=== PATIENT | female | born 1965 | race Two or more races ===

== ENCOUNTER 2017-07-19 16:47 | Inpatient (IN) | payer MEDICAID, OTHER ==
[~2017-07-19] VITALS: Ht 152.4 cm; Wt 47.3 kg
[2017-07-19] MEDS ORDERED: MORPHINE SULFATE 4 MG/ML, 1ML ONE (17:20)
[2017-07-19] MEDS: MORPHINE SULFATE 4 MG/ML, 1ML IVPush PRN (17:24)
[2017-07-19] MEDS ORDERED: SODIUM CHLORIDE FLUSH 10ML SYR IVF ONE (17:30)
[2017-07-19] MEDS ORDERED: PLEASE ENTER ALLERGIES MC SCH ×2 (17:30)
[2017-07-19 17:56] LABS: HEMATOCRIT 45.2 % (34.6-47.8); HEMOGLOBIN 15.4 g/dL (11.7-16.4); WHITE BLOOD COUNT 12.8 x10^3/uL (3.4-10)
[2017-07-19 17:58] LABS: BLOOD UREA NITROGEN 15 mg/dL (7-18)
[2017-07-19 18:19] LABS: DIFF TOTAL CELLS COUNTED 100 CELL DIFF
[2017-07-19 18:22] LABS: GIANT PLATELETS 1+
[2017-07-19 18:23] LABS: VERIFY COUNTS? YES
[2017-07-19] MEDS ORDERED: SODIUM CHLORIDE 0.9% 1,000ML IVBOLUS ONE (18:30)
[2017-07-19] MEDS ORDERED: HYDROmorphone 1 MG/ML, 1ML ONE (19:23)
[2017-07-19] MEDS ORDERED: HYDROmorphone 1 MG/ML, 1ML IV ONE (19:30)
[2017-07-19] MEDS ORDERED: DIAZEPAM 5 MG/ML, 10ML VIAL IV ONE (19:30)
[2017-07-19] MEDS ORDERED: DEXTROSE 4 GM TAB.CHEW PO PRN (21:00)
[2017-07-19] MEDS ORDERED: BISACODYL 10 MG SUPP PR PRN (21:00)
[2017-07-19] MEDS ORDERED: DEXTROSE 50%, 50ML SYRINGE IVPush PRN (21:00)
[2017-07-19] MEDS ORDERED: GLUCAGON 1 MG IM PRN (21:00)
[2017-07-19] MEDS ORDERED: ACETAMINOPHEN 325 MG TABLET PO PRN (21:00)
[2017-07-19] MEDS ORDERED: CLON2TAB16 PO (22:04)
[2017-07-19] MEDS: HEPARIN 5,000 UNITS/ML, 1ML SQ SCH (22:26)
[2017-07-19] MEDS: METHOCARBAMOL 500 MG TABLET PO PRN (22:27)
[2017-07-19] MEDS: INSULIN ASPART 100 UNITS/ML, PEN SQ-INSULIN SCH (22:27)
[2017-07-19] MEDS: SODIUM CHLORIDE FLUSH 10ML SYR IVF SCH (22:29)
[2017-07-19] MEDS: SODIUM CHLORIDE 0.9% 1,000 ML IV SCH (22:29)
[2017-07-19] MEDS: morphine SULFATE 10 MG/ML, 1ML IVPush PRN (22:57)
[2017-07-20] MEDS: ONDANSETRON 2MG/ML, 2ML IVPush PRN ×2 (03:00→11:50)
[2017-07-20] MEDS: morphine SULFATE 10 MG/ML, 1ML IVPush PRN ×3 (03:17→09:08)
[2017-07-20 04:16] VITALS: BP 105/69
[2017-07-20 05:31] LABS: HEMATOCRIT 41.1 % (34.6-47.8); HEMOGLOBIN 13.9 g/dL (11.7-16.4); WHITE BLOOD COUNT 11.5 x10^3/uL (3.4-10)
[2017-07-20 05:47] LABS: ASPARTATE AMINO TRANSFERASE 108 U/L (15-37); BLOOD UREA NITROGEN 14 mg/dL (7-18)
[2017-07-20] MEDS: HEPARIN 5,000 UNITS/ML, 1ML SQ SCH ×2 (05:52→16:50)
[2017-07-20] MEDS: INSULIN ASPART 100 UNITS/ML, PEN SQ-INSULIN SCH ×4 (07:00→20:56)
[2017-07-20 07:07] VITALS: BP 106/69
[2017-07-20] MEDS: SENNA/DOCUSATE TABLET PO SCH (09:00)
[2017-07-20] MEDS: MORPHINE SULFATE 4 MG/ML, 1ML IVPush PRN (09:07)
[2017-07-20] MEDS: SODIUM CHLORIDE 0.9% 1,000 ML IV SCH ×2 (09:08→20:55)
[2017-07-20] MEDS: SODIUM CHLORIDE FLUSH 10ML SYR IVF SCH ×2 (09:08→20:56)
[2017-07-20] MEDS: METHOCARBAMOL 500 MG TABLET PO PRN (09:09)
[2017-07-20] MEDS ORDERED: LORazepam 2 MG/ML, 1ML ONE (10:13)
[2017-07-20] MEDS ORDERED: KETOROLAC 30 MG/1 ML ONE (10:13)
[2017-07-20] MEDS: HYDROmorphone 2 MG/ML, 1ML IVPush PRN ×3 (10:19→21:10)
[2017-07-20] MEDS: KETOROLAC 30 MG/1 ML IVPush SCH ×3 (10:20→22:44)
[2017-07-20] MEDS ORDERED: LORazepam 2 MG/ML, 1ML IVPush ONE (10:30)
[2017-07-20 13:56] VITALS: BP 99/64
[2017-07-20 20:03] VITALS: BP 116/77
[2017-07-21 02:00] VITALS: BP 98/59
[2017-07-21] MEDS: KETOROLAC 30 MG/1 ML IVPush SCH ×4 (05:06→22:18)
[2017-07-21 06:37] LABS: HEMATOCRIT 39.4 % (34.6-47.8); HEMOGLOBIN 13.1 g/dL (11.7-16.4); WHITE BLOOD COUNT 8.6 x10^3/uL (3.4-10)
[2017-07-21] MEDS ORDERED: MAGNESIUM SULFATE PMX 2GM/50ML 50 ML IV ONE (07:00)
[2017-07-21 07:43] VITALS: BP 97/58
[2017-07-21] MEDS: SODIUM CHLORIDE 0.9% 1,000 ML IV SCH (07:45)
[2017-07-21] MEDS: SENNA/DOCUSATE TABLET PO SCH (07:46)
[2017-07-21] MEDS: HEPARIN 5,000 UNITS/ML, 1ML SQ SCH ×3 (07:47→16:31)
[2017-07-21] MEDS: SODIUM CHLORIDE FLUSH 10ML SYR IVF SCH ×2 (07:47→20:36)
[2017-07-21] MEDS: INSULIN ASPART 100 UNITS/ML, PEN SQ-INSULIN SCH ×4 (07:49→20:36)
[2017-07-21] MEDS: HYDROmorphone 2 MG/ML, 1ML IVPush PRN (08:49)
[2017-07-21] MEDS ORDERED: INSULIN DETEMIR 100 UNITS/ML, PEN SQ-INSULIN SCH (13:00)
[2017-07-21 13:25] VITALS: BP 92/57
[2017-07-21] MEDS ORDERED: GADOBUTROL 7.5 MMOL/7.5 ML PFS ONE (13:55)
[2017-07-21] MEDS ORDERED: HYDROmorphone 2 MG/ML, 1ML IVPush PRN (14:30)
[2017-07-21] MEDS: METHOCARBAMOL 500 MG TABLET PO PRN (15:08)
[2017-07-21] MEDS: morphine SULFATE 10 MG/ML, 1ML IVPush PRN (17:44)
[2017-07-21 19:33] VITALS: BP 98/63
[2017-07-21] MEDS ORDERED: DEXTROSE 4 GM TAB.CHEW PO PRN (22:00)
[2017-07-21] MEDS ORDERED: BISACODYL 10 MG SUPP PR PRN (22:00)
[2017-07-22] MEDS: HEPARIN 5,000 UNITS/ML, 1ML SQ SCH ×3 (00:16→16:35)
[2017-07-22] MEDS: morphine SULFATE 10 MG/ML, 1ML IVPush PRN ×3 (00:24→06:28)
[2017-07-22 01:08] VITALS: BP 92/56
[2017-07-22] MEDS: KETOROLAC 30 MG/1 ML IVPush SCH ×4 (04:48→22:19)
[2017-07-22 05:44] LABS: ASPARTATE AMINO TRANSFERASE 34 U/L (15-37); BLOOD UREA NITROGEN 9 mg/dL (7-18)
[2017-07-22] MEDS: METHOCARBAMOL 500 MG TABLET PO PRN (05:49)
[2017-07-22] MEDS ORDERED: HYDROmorphone 2MG TABLET PO PRN (07:30)
[2017-07-22 07:36] VITALS: BP 132/88
[2017-07-22] MEDS: INSULIN ASPART 100 UNITS/ML, PEN SQ-INSULIN SCH ×4 (08:13→20:46)
[2017-07-22] MEDS: GABAPENTIN 100 MG CAPSULE PO SCH ×3 (08:53→20:46)
[2017-07-22] MEDS ORDERED: BACLOFEN 10 MG TABLET PO SCH (09:00)
[2017-07-22] MEDS ORDERED: INSULIN NPH HUMAN 100 UNIT/ML, 3ML VIAL SQ-INSULIN SCH (09:00)
[2017-07-22] MEDS: SENNA/DOCUSATE TABLET PO SCH (09:51)
[2017-07-22] MEDS: SODIUM CHLORIDE FLUSH 10ML SYR IVF SCH ×2 (09:51→20:47)
[2017-07-22] MEDS ORDERED: MAGNESIUM SULFATE PMX 2GM/50ML 50 ML IV ONE (13:30)
[2017-07-22] MEDS: SODIUM CHLORIDE 0.9% 1,000 ML IV SCH (14:06)
[2017-07-22 14:09] VITALS: BP 94/59
[2017-07-22 20:10] VITALS: BP 99/62
[2017-07-22] MEDS: BACLOFEN 10 MG TABLET PO PRN (20:46)
[2017-07-23] MEDS: HEPARIN 5,000 UNITS/ML, 1ML SQ SCH ×4 (00:29→23:09)
[2017-07-23] MEDS: SODIUM CHLORIDE 0.9% 1,000 ML IV SCH ×3 (00:29→21:09)
[2017-07-23 01:28] VITALS: BP 100/69
[2017-07-23] MEDS: KETOROLAC 30 MG/1 ML IVPush SCH ×4 (04:39→23:09)
[2017-07-23 05:26] LABS: BLOOD UREA NITROGEN 11 mg/dL (7-18)
[2017-07-23] MEDS: GABAPENTIN 100 MG CAPSULE PO SCH ×4 (06:11→21:09)
[2017-07-23] MEDS ORDERED: POTASSIUM CHLORIDE 20 MEQ TAB.ER.PRT PO ONE (07:00)
[2017-07-23] MEDS: INSULIN ASPART 100 UNITS/ML, PEN SQ-INSULIN SCH ×4 (07:45→21:11)
[2017-07-23] MEDS: SODIUM CHLORIDE FLUSH 10ML SYR IVF SCH ×2 (07:46→21:09)
[2017-07-23] MEDS: SENNA/DOCUSATE TABLET PO SCH (07:46)
[2017-07-23] MEDS: INSULIN NPH HUMAN 100 UNIT/ML, 3ML VIAL SQ-INSULIN SCH (07:46)
[2017-07-23 07:53] VITALS: BP 159/77
[2017-07-23] MEDS ORDERED: INSULIN NPH HUMAN 100 UNIT/ML, 3ML VIAL SQ-INSULIN SCH (09:00)
[2017-07-23 14:08] VITALS: BP 109/74
[2017-07-23] MEDS: BACLOFEN 10 MG TABLET PO PRN (15:14)
[2017-07-23] MEDS: POLYETHYLENE GLYCOL 17 GM PACKET PO PRN (15:14)
[2017-07-23] MEDS: ACETAMINOPHEN 325 MG TABLET PO PRN (15:14)
[2017-07-23 19:15] VITALS: BP 100/57
[2017-07-24 01:08] VITALS: BP 93/62
[2017-07-24] MEDS: KETOROLAC 30 MG/1 ML IVPush SCH (05:01)
[2017-07-24] MEDS: GABAPENTIN 100 MG CAPSULE PO SCH ×3 (05:01→22:28)
[2017-07-24 06:54] LABS: BLOOD UREA NITROGEN 9 mg/dL (7-18)
[2017-07-24] MEDS: SENNA/DOCUSATE TABLET PO SCH (08:08)
[2017-07-24 08:11] VITALS: BP 93/59
[2017-07-24] MEDS: HEPARIN 5,000 UNITS/ML, 1ML SQ SCH ×2 (08:11→16:34)
[2017-07-24] MEDS: INSULIN NPH HUMAN 100 UNIT/ML, 3ML VIAL SQ-INSULIN SCH (08:12)
[2017-07-24] MEDS: INSULIN ASPART 100 UNITS/ML, PEN SQ-INSULIN SCH ×4 (08:13→22:28)
[2017-07-24] MEDS: SODIUM CHLORIDE FLUSH 10ML SYR IVF SCH ×2 (08:18→22:28)
[2017-07-24] MEDS: morphine SULFATE 10 MG/ML, 1ML IVPush PRN ×3 (08:18→22:28)
[2017-07-24] MEDS: SODIUM CHLORIDE 0.9% 1,000 ML IV SCH (08:18)
[2017-07-24 14:12] VITALS: BP 84/64
[2017-07-24 19:25] VITALS: BP 102/69
[2017-07-25] MEDS: HEPARIN 5,000 UNITS/ML, 1ML SQ SCH ×3 (01:35→16:21)
[2017-07-25] MEDS: ACETAMINOPHEN 325 MG TABLET PO PRN (01:39)
[2017-07-25 02:20] VITALS: BP 100/65
[2017-07-25 05:59] LABS: BLOOD UREA NITROGEN 8 mg/dL (7-18)
[2017-07-25] MEDS: INSULIN ASPART 100 UNITS/ML, PEN SQ-INSULIN SCH ×4 (07:00→21:03)
[2017-07-25 07:35] VITALS: BP 101/64
[2017-07-25] MEDS: SODIUM CHLORIDE FLUSH 10ML SYR IVF SCH ×2 (08:49→21:08)
[2017-07-25] MEDS: GABAPENTIN 100 MG CAPSULE PO SCH ×2 (08:49→16:23)
[2017-07-25] MEDS: SENNA/DOCUSATE TABLET PO SCH (08:50)
[2017-07-25] MEDS: INSULIN NPH HUMAN 100 UNIT/ML, 3ML VIAL SQ-INSULIN SCH (08:50)
[2017-07-25 13:35] VITALS: BP 106/73
[2017-07-25] MEDS: BACLOFEN 10 MG TABLET PO PRN (16:23)
[2017-07-25] MEDS: morphine SULFATE 10 MG/ML, 1ML IVPush PRN ×2 (16:50→21:02)
[2017-07-25 18:45] VITALS: BP 119/81
[2017-07-25] MEDS: GABAPENTIN 300 MG CAPSULE PO SCH (21:02)
[2017-07-26] MEDS: HEPARIN 5,000 UNITS/ML, 1ML SQ SCH ×3 (02:00→16:00)
[2017-07-26 02:30] VITALS: BP 102/66
[2017-07-26 05:35] LABS: BLOOD UREA NITROGEN 11 mg/dL (7-18)
[2017-07-26] MEDS: INSULIN ASPART 100 UNITS/ML, PEN SQ-INSULIN SCH ×4 (07:00→21:29)
[2017-07-26 07:05] VITALS: BP 100/64
[2017-07-26] MEDS: morphine SULFATE 10 MG/ML, 1ML IVPush PRN ×2 (07:58→15:29)
[2017-07-26] MEDS: SENNA/DOCUSATE TABLET PO SCH (07:59)
[2017-07-26] MEDS: GABAPENTIN 300 MG CAPSULE PO SCH ×3 (07:59→21:43)
[2017-07-26] MEDS: SODIUM CHLORIDE FLUSH 10ML SYR IVF SCH ×2 (07:59→21:50)
[2017-07-26] MEDS: INSULIN NPH HUMAN 100 UNIT/ML, 3ML VIAL SQ-INSULIN SCH (08:06)
[2017-07-26 13:55] VITALS: BP 100/66
[2017-07-26] MEDS ORDERED: LORazepam 2 MG/ML, 1ML ONE (15:35)
[2017-07-26] MEDS ORDERED: HYDROmorphone 2 MG/ML, 1ML ONE (15:45)
[2017-07-26] MEDS: HYDROmorphone 1 MG/ML, 1ML IV PRN ×3 (15:49→22:11)
[2017-07-26] MEDS ORDERED: LORazepam 2 MG/ML, 1ML IVPush ONE (16:00)
[2017-07-26] MEDS ORDERED: GADOBUTROL 7.5 MMOL/7.5 ML PFS ONE (16:38)
[2017-07-26 19:30] VITALS: BP 103/65
[2017-07-26] MEDS: ONDANSETRON 2MG/ML, 2ML IVPush PRN (21:28)
[2017-07-26] MEDS: BACLOFEN 10 MG TABLET PO PRN (21:43)
[2017-07-26 22:17] VITALS: BP 149/92
[2017-07-27] MEDS: HEPARIN 5,000 UNITS/ML, 1ML SQ SCH ×4 (00:42→23:22)
[2017-07-27 01:50] VITALS: BP 93/60
[2017-07-27] MEDS: HYDROmorphone 1 MG/ML, 1ML IV PRN ×5 (04:20→22:54)
[2017-07-27] MEDS: GABAPENTIN 300 MG CAPSULE PO SCH ×3 (07:42→20:25)
[2017-07-27] MEDS: SENNA/DOCUSATE TABLET PO SCH (07:42)
[2017-07-27] MEDS: BACLOFEN 10 MG TABLET PO PRN (07:42)
[2017-07-27] MEDS: INSULIN ASPART 100 UNITS/ML, PEN SQ-INSULIN SCH ×4 (07:43→20:25)
[2017-07-27] MEDS: INSULIN NPH HUMAN 100 UNIT/ML, 3ML VIAL SQ-INSULIN SCH (07:43)
[2017-07-27] MEDS: SODIUM CHLORIDE FLUSH 10ML SYR IVF SCH ×2 (07:43→20:25)
[2017-07-27] MEDS: HYDROcodone/APAP 5/325 TABLET PO PRN ×2 (07:54→16:11)
[2017-07-27] MEDS: morphine SULFATE 10 MG/ML, 1ML IVPush PRN (08:01)
[2017-07-27] MEDS ORDERED: LORazepam 2 MG/ML, 1ML IVPush ONE (08:20)
[2017-07-27 08:48] VITALS: BP 147/103
[2017-07-27 12:24] VITALS: BP 92/58
[2017-07-27] MEDS: ONDANSETRON 2MG/ML, 2ML IVPush PRN (18:01)
[2017-07-27] MEDS ORDERED: GADOBUTROL 7.5 MMOL/7.5 ML PFS ONE (18:26)
[2017-07-27 20:32] VITALS: BP 100/66
[2017-07-28 03:40] VITALS: BP 98/61
[2017-07-28] MEDS: HYDROmorphone 1 MG/ML, 1ML IV PRN ×3 (05:10→18:11)
[2017-07-28] MEDS: INSULIN ASPART 100 UNITS/ML, PEN SQ-INSULIN SCH ×4 (07:47→21:27)
[2017-07-28 07:54] VITALS: BP 95/59
[2017-07-28] MEDS: INSULIN NPH HUMAN 100 UNIT/ML, 3ML VIAL SQ-INSULIN SCH (09:08)
[2017-07-28] MEDS: GABAPENTIN 300 MG CAPSULE PO SCH ×3 (09:08→21:27)
[2017-07-28] MEDS: SENNA/DOCUSATE TABLET PO SCH (09:09)
[2017-07-28] MEDS: HEPARIN 5,000 UNITS/ML, 1ML SQ SCH ×2 (09:09→16:27)
[2017-07-28] MEDS: SODIUM CHLORIDE FLUSH 10ML SYR IVF SCH ×2 (09:09→21:28)
[2017-07-28 14:39] VITALS: BP 94/58
[2017-07-28] MEDS ORDERED: DEXTROSE 50%, 50ML SYRINGE IVPush PRN (19:00)
[2017-07-28] MEDS ORDERED: GLUCAGON 1 MG IM PRN (19:00)
[2017-07-28] MEDS ORDERED: BISACODYL 10 MG SUPP PR PRN (19:00)
[2017-07-28] MEDS ORDERED: DEXTROSE 4 GM TAB.CHEW PO PRN (19:00)
[2017-07-28 19:56] VITALS: BP 94/59
[2017-07-29 01:52] VITALS: BP 97/64
[2017-07-29] MEDS: HYDROmorphone 1 MG/ML, 1ML IV PRN (02:56)
[2017-07-29] MEDS: INSULIN ASPART 100 UNITS/ML, PEN SQ-INSULIN SCH ×4 (07:19→20:44)
[2017-07-29] MEDS: HEPARIN 5,000 UNITS/ML, 1ML SQ SCH ×3 (07:45→23:02)
[2017-07-29] MEDS: SODIUM CHLORIDE FLUSH 10ML SYR IVF SCH ×2 (07:47→20:44)
[2017-07-29] MEDS: GABAPENTIN 300 MG CAPSULE PO SCH ×3 (07:47→20:44)
[2017-07-29] MEDS: SENNA/DOCUSATE TABLET PO SCH (07:47)
[2017-07-29] MEDS: INSULIN NPH HUMAN 100 UNIT/ML, 3ML VIAL SQ-INSULIN SCH (07:48)
[2017-07-29] MEDS: HYDROcodone/APAP 5/325 TABLET PO PRN ×3 (07:54→23:40)
[2017-07-29 08:09] VITALS: BP 103/68
[2017-07-29] MEDS ORDERED: DIAZEPAM 10 MG TABLET PO ONE (13:00)
[2017-07-29 13:19] VITALS: BP 104/69
[2017-07-29] MEDS ORDERED: DIAZEPAM 5 MG TABLET PO ONE (13:30)
[2017-07-29] MEDS ORDERED: GADOBUTROL 7.5 MMOL/7.5 ML PFS ONE (15:47)
[2017-07-29 19:41] VITALS: BP 93/59
[2017-07-30 02:51] VITALS: BP 121/78
[2017-07-30] MEDS: INSULIN ASPART 100 UNITS/ML, PEN SQ-INSULIN SCH ×4 (07:00→20:45)
[2017-07-30] MEDS: HYDROcodone/APAP 5/325 TABLET PO PRN ×2 (07:34→16:28)
[2017-07-30 08:22] VITALS: BP 106/66
[2017-07-30] MEDS: INSULIN NPH HUMAN 100 UNIT/ML, 3ML VIAL SQ-INSULIN SCH (08:41)
[2017-07-30] MEDS: GABAPENTIN 300 MG CAPSULE PO SCH ×3 (08:41→20:46)
[2017-07-30] MEDS: SENNA/DOCUSATE TABLET PO SCH (08:41)
[2017-07-30] MEDS: SODIUM CHLORIDE FLUSH 10ML SYR IVF SCH ×2 (08:41→20:45)
[2017-07-30] MEDS: HEPARIN 5,000 UNITS/ML, 1ML SQ SCH ×2 (08:41→16:28)
[2017-07-30] MEDS: BACLOFEN 10 MG TABLET PO SCH ×3 (12:32→20:46)
[2017-07-30 13:19] VITALS: BP 106/71
[2017-07-30] MEDS: POLYETHYLENE GLYCOL 17 GM PACKET PO PRN (17:19)
[2017-07-30 19:19] VITALS: BP 100/64
[2017-07-31] MEDS: HEPARIN 5,000 UNITS/ML, 1ML SQ SCH ×3 (00:16→16:47)
[2017-07-31 02:16] VITALS: BP 99/62
[2017-07-31] MEDS: INSULIN ASPART 100 UNITS/ML, PEN SQ-INSULIN SCH ×4 (07:21→21:12)
[2017-07-31] MEDS: INSULIN NPH HUMAN 100 UNIT/ML, 3ML VIAL SQ-INSULIN SCH (07:39)
[2017-07-31] MEDS: GABAPENTIN 300 MG CAPSULE PO SCH ×3 (07:40→21:39)
[2017-07-31] MEDS: SODIUM CHLORIDE FLUSH 10ML SYR IVF SCH ×2 (07:40→21:40)
[2017-07-31] MEDS: SENNA/DOCUSATE TABLET PO SCH (07:40)
[2017-07-31] MEDS: BACLOFEN 10 MG TABLET PO SCH ×3 (07:40→21:39)
[2017-07-31 09:15] VITALS: BP 107/70
[2017-07-31] MEDS ORDERED: HYDR-3240 PO (13:11)
[2017-07-31] MEDS ORDERED: BACL-19 PO (13:11)
[2017-07-31] MEDS ORDERED: METH4TAB PO (13:11)
[2017-07-31] MEDS ORDERED: GABA300C10 PO (13:11)
[2017-07-31] MEDS ORDERED: MORP15TA3 PO (13:13)
[2017-07-31 14:15] VITALS: BP 104/68
[2017-07-31] MEDS: HYDROcodone/APAP 5/325 TABLET PO PRN (18:41)
[2017-07-31] MEDS: ACETAMINOPHEN 325 MG TABLET PO PRN (19:37)
[2017-07-31 21:16] VITALS: BP 94/60
[2017-08-01 04:03] VITALS: BP 105/72
[2017-08-01] MEDS: INSULIN ASPART 100 UNITS/ML, PEN SQ-INSULIN SCH ×2 (07:00→11:31)
[2017-08-01 07:17] VITALS: BP 108/67
[2017-08-01] MEDS: HEPARIN 5,000 UNITS/ML, 1ML SQ SCH ×2 (07:20)
[2017-08-01] MEDS: GABAPENTIN 300 MG CAPSULE PO SCH ×2 (07:20→15:36)
[2017-08-01] MEDS: BACLOFEN 10 MG TABLET PO SCH ×2 (07:20→15:36)
[2017-08-01] MEDS: SENNA/DOCUSATE TABLET PO SCH (07:20)
[2017-08-01] MEDS: SODIUM CHLORIDE FLUSH 10ML SYR IVF SCH (07:24)
[2017-08-01] MEDS: INSULIN NPH HUMAN 100 UNIT/ML, 3ML VIAL SQ-INSULIN SCH (09:16)
[2017-08-01] MEDS ORDERED: METF500T4 PO (12:15)
[2017-08-01 13:22] VITALS: BP 99/62
[2017-08-01] MEDS: HYDROcodone/APAP 5/325 TABLET PO PRN (15:36)
== END 2017-08-01 16:28 | disposition home or self-care (01) | DRG 74 ==
LOC: ED 17:16 → EDIP 19:52 → 3NE 21:08
PROVIDERS: ADMIT Hospitalist; ATTEND Family Medicine
DX: E11.610 Type 2 diabetes mellitus with diabetic neuropathic arthropathy (principal); G95.89 Other specified diseases of spinal cord; E11.65 Type 2 diabetes mellitus with hyperglycemia; E44.1 Mild protein-calorie malnutrition; E11.40 Type 2 diabetes mellitus with diabetic neuropathy, unspecified; E87.1 Hypo-osmolality and hyponatremia; E83.42 Hypomagnesemia; D18.09 Hemangioma of other sites; D72.829 Elevated white blood cell count, unspecified; E78.5 Hyperlipidemia, unspecified; K59.00 Constipation, unspecified; M54.16 Radiculopathy, lumbar region; M65.9 Synovitis and tenosynovitis, unspecified; G89.29 Other chronic pain; M21.6X1 Other acquired deformities of right foot; R74.0 Nonspecific elevation of levels of transaminase and lactic acid dehydrogenase [LDH]; M48.8X6 Other specified spondylopathies, lumbar region; R25.2 Cramp and spasm; Z90.49 Acquired absence of other specified parts of digestive tract; Z91.14 Patient's other noncompliance with medication regimen; Z91.19 Patient's noncompliance with other medical treatment and regimen; Z91.81 History of falling
CPT/HCPCS: 36415; 70553; 72156; 72157; 72158; 72192; 74000; 78306; 80048; 80053; 81003; 82040; 82390; 82525; 82550; 82607; 82746; 82947; 82962; 83036; 83735; 84100; 85025; 93005; 96361; 96374; 96375; A9585; J1170; J1644; J1815; J1885; J2405; J3360; J7509; A9503; C9898; J2060; J2270; J3475; J7030

== ENCOUNTER 2017-09-02 19:00 | Emergency (ER) | payer MEDICAID, OTHER ==
[~2017-09-02] VITALS: Ht 152.4 cm; Wt 40.8 kg
[~2017-09-02 19:00] MED LIST: BACL-19 PO; CLON2TAB16 PO; GABA300C10 PO; HYDR-3240 PO; METF500T4 PO; METH4TAB PO; MORP15TA3 PO
[2017-09-02] MEDS ORDERED: morphine SULFATE 10 MG/ML, 1ML ONE (19:10)
[2017-09-02] MEDS ORDERED: ONDANSETRON 2MG/ML, 2ML ONE (19:10)
[2017-09-02 19:28] LABS: HEMATOCRIT 42.6 % (34.6-47.8); HEMOGLOBIN 14.3 g/dL (11.7-16.4); WHITE BLOOD COUNT 8.6 x10^3/uL (3.4-10)
[2017-09-02] MEDS ORDERED: SODIUM CHLORIDE 0.9% 1,000ML IVBOLUS ONE (19:30)
[2017-09-02] MEDS ORDERED: ONDANSETRON 2MG/ML, 2ML IVPush ONE (19:30)
[2017-09-02] MEDS ORDERED: MORPHINE SULFATE 4 MG/ML, 1ML IVPush PRN (19:30)
[2017-09-02] MEDS ORDERED: morphine SULFATE 10 MG/ML, 1ML IVPush PRN (19:30)
[2017-09-02 19:38] LABS: BLOOD UREA NITROGEN 20 mg/dL (7-18)
[2017-09-02 19:44] LABS: ASPARTATE AMINO TRANSFERASE 12 U/L (15-37)
[2017-09-02] MEDS ORDERED: KETOROLAC 30 MG/1 ML IM ONE (20:30)
[2017-09-02] MEDS ORDERED: HYDROmorphone 1 MG/ML, 1ML IVPush PRN (20:30)
[2017-09-02] MEDS ORDERED: HYDROmorphone 1 MG/ML, 1ML ONE (20:37)
[2017-09-02] MEDS ORDERED: KETOROLAC 30 MG/1 ML ONE (20:37)
[2017-09-02 21:32] VITALS: BP 108/64
== END 2017-09-02 21:36 | disposition home or self-care (01) ==
LOC: ED 21:02
DX: M79.661 Pain in right lower leg (principal); M79.671 Pain in right foot; M79.651 Pain in right thigh; E11.9 Type 2 diabetes mellitus without complications
CPT/HCPCS: 36415; 80053; 82330; 82550; 83735; 85025; 96361; 96372; 96374; 96375; 99285; J1170; J1885; J2405; J7030

== ENCOUNTER 2017-09-09 18:51 | Emergency (ER) | payer MEDICAID ==
[~2017-09-09] VITALS: Ht 154.9 cm; Wt 44.0 kg
[2017-09-09] MEDS ORDERED: HYDROmorphone 1 MG/ML, 1ML ONE (19:54)
[2017-09-09] MEDS ORDERED: HYDROmorphone 1 MG/ML, 1ML IVPush PRN (20:00)
[2017-09-09 20:29] LABS: BLOOD UREA NITROGEN 18 mg/dL (7-18)
[2017-09-09 20:54] LABS: HEMATOCRIT 44.4 % (34.6-47.8); HEMOGLOBIN 15.4 g/dL (11.7-16.4); WHITE BLOOD COUNT 12.3 x10^3/uL (3.4-10)
[2017-09-09 20:56] LABS: GIANT PLATELETS 1+; LARGE PLATELETS 2+
[2017-09-09 22:23] VITALS: BP 95/69
== END 2017-09-09 22:26 | disposition home or self-care (01) ==
LOC: ED 22:15
DX: R25.2 Cramp and spasm (principal); E11.9 Type 2 diabetes mellitus without complications
CPT/HCPCS: 36415; 80048; 82040; 83735; 85025; 96374; 99284; J1170

== ENCOUNTER 2017-09-20 20:39 | Emergency (ER) | payer MEDICAID ==
[~2017-09-20] VITALS: Ht 154.9 cm; Wt 44.5 kg
[2017-09-20] MEDS ORDERED: HYDROmorphone 2 MG/ML, 1ML ONE (21:12)
[2017-09-20] MEDS ORDERED: HYDROmorphone 1 MG/ML, 1ML IV ONE (21:30)
[2017-09-20] MEDS ORDERED: DIAZEPAM 5 MG/ML, 10ML VIAL IV ONE (21:30)
[2017-09-20 21:40] LABS: BLOOD UREA NITROGEN 13 mg/dL (7-18)
[2017-09-21 01:05] VITALS: BP 98/61
== END 2017-09-21 01:08 | disposition home or self-care (01) ==
LOC: ED 20:56
DX: M62.831 Muscle spasm of calf (principal); E11.9 Type 2 diabetes mellitus without complications
CPT/HCPCS: 36415; 80048; 96374; 96375; 99284; J1170; J3360

== ENCOUNTER 2017-10-09 11:19 | Emergency (ER) | payer MEDICAID ==
[~2017-10-09] VITALS: Ht 152.4 cm; Wt 44.0 kg
[2017-10-09] MEDS ORDERED: HYDROmorphone 2 MG/ML, 1ML ONE (11:36)
[2017-10-09] MEDS ORDERED: KETOROLAC 30 MG/1 ML IVPush ONE (12:00)
[2017-10-09] MEDS ORDERED: HYDROmorphone 2 MG/ML, 1ML IVPush ONE (12:00)
[2017-10-09] MEDS ORDERED: DIAZEPAM 5 MG/ML, 2ML IVPush ONE (12:30)
[2017-10-09] MEDS ORDERED: KETOROLAC 30 MG/1 ML ONE (12:52)
[2017-10-09 13:26] VITALS: BP 111/82
[2017-10-09] MEDS ORDERED: BUPIVACAINE 0.25% ONE (13:59)
== END 2017-10-09 15:03 | disposition home or self-care (01) ==
LOC: ED 12:14
DX: M79.1 Myalgia (principal); E11.9 Type 2 diabetes mellitus without complications
CPT/HCPCS: 96374; 96375; 99284; J1170; J1885; J3360

== ENCOUNTER 2017-10-10 17:01 | Emergency (ER) | payer MEDICAID ==
[~2017-10-10] VITALS: Ht 152.4 cm; Wt 44.5 kg
[2017-10-10] MEDS ORDERED: KETOROLAC 30 MG/1 ML ONE (17:55)
[2017-10-10] MEDS ORDERED: KETOROLAC 30 MG/1 ML IVPush ONE (18:00)
[2017-10-10] MEDS ORDERED: SODIUM CHLORIDE FLUSH 10ML SYR IVF ONE (18:00)
[2017-10-10] MEDS ORDERED: ZIPRASIDONE 20 MG INJ IM ONE ×2 (18:19→18:30)
[2017-10-10] MEDS ORDERED: HYDROmorphone 2 MG/ML, 1ML ONE (18:20)
[2017-10-10] MEDS ORDERED: HYDROmorphone 1 MG/ML, 1ML IVPush PRN (18:30)
[2017-10-10] MEDS ORDERED: SODIUM CHLORIDE 0.9% 1,000ML IVBOLUS ONE (18:30)
[2017-10-10 18:59] LABS: BASOPHILS # (AUTO) 0.05 x10^3/uL (0-0.1); BASOPHILS % (AUTO) 0 % (0-1); EOSINOPHILS # (AUTO) 0.04 x10^3/uL (0-0.4); EOSINOPHILS % (AUTO) 0 % (1-7); LYMPHOCYTES # (AUTO) 2.13 x10^3/uL (1-3.4); LYMPHOCYTES % (AUTO) 13 % (22-44); MD NO; MEAN CORPUSCULAR HEMOGLOBIN 31.5 pg (27.0-34.8); MEAN CORPUSCULAR VOLUME 92.6 fL (80-100); MEAN PLATELET VOLUME 10.8 fL (7.4-10.4); MONOCYTES # (AUTO) 0.55 x10^3/uL (0.2-0.8); MONOCYTES % (AUTO) 3 % (2-9); NEUTROPHILS # (AUTO) 13.87 x10^3/uL (1.8-6.8); NEUTROPHILS % (AUTO) 83 % (42-75); PLATELET COUNT 325 x10^3/uL (130-400); RED BLOOD COUNT 4.75 x10^6/uL (3.82-5.3); RED CELL DISTRIBUTION WIDTH 12.7 % (9.6-15.2)
[2017-10-10 19:03] LABS: ANION GAP 8 mmol/L (5-15); CALCIUM 8.8 mg/dL (8.5-10.1); CHLORIDE 106 mmol/L (98-107); CREATININE 0.73 mg/dL (0.55-1.02)
[2017-10-10 20:20] VITALS: BP 111/61
== END 2017-10-10 20:49 | disposition home or self-care (01) ==
LOC: ED 17:52
DX: M79.661 Pain in right lower leg (principal); E11.9 Type 2 diabetes mellitus without complications
CPT/HCPCS: 36415; 80048; 82040; 82550; 85025; 96361; 96372; 96374; 96375; 99285; J1170; J1885; J3486; J7030

== ENCOUNTER 2017-10-11 08:22 | Inpatient (IN) | payer MEDICAID ==
[~2017-10-11] VITALS: Ht 152.4 cm; Wt 48.1 kg
[2017-10-11] MEDS ORDERED: SODIUM CHLORIDE 0.9% 1,000 ML IV ONE ×2 (08:42→11:22)
[2017-10-11] MEDS ORDERED: SODIUM CHLORIDE FLUSH 10ML SYR IVF ONE (09:00)
[2017-10-11] MEDS ORDERED: DIAZEPAM 5 MG/ML, 2ML IVPush ONE (09:00)
[2017-10-11] MEDS ORDERED: SODIUM CHLORIDE 0.9% 1,000ML IVBOLUS ONE (09:00)
[2017-10-11 09:15] LABS: BASOPHILS # (AUTO) 0.03 x10^3/uL (0-0.1); BASOPHILS % (AUTO) 0 % (0-1); EOSINOPHILS # (AUTO) 0.03 x10^3/uL (0-0.4); EOSINOPHILS % (AUTO) 0 % (1-7); LYMPHOCYTES # (AUTO) 1.57 x10^3/uL (1-3.4); LYMPHOCYTES % (AUTO) 11 % (22-44); MD NO; MEAN CORPUSCULAR HEMOGLOBIN 31.3 pg (27.0-34.8); MEAN CORPUSCULAR HGB CONC 34.1 g/dL (32.4-35.8); MEAN CORPUSCULAR VOLUME 91.8 fL (80-100); MONOCYTES # (AUTO) 0.16 x10^3/uL (0.2-0.8); MONOCYTES % (AUTO) 1 % (2-9); NEUTROPHILS # (AUTO) 12.56 x10^3/uL (1.8-6.8); NEUTROPHILS % (AUTO) 88 % (42-75); PLATELET COUNT 286 x10^3/uL (130-400); RED BLOOD COUNT 4.57 x10^6/uL (3.82-5.3); RED CELL DISTRIBUTION WIDTH 12.7 % (9.6-15.2)
[2017-10-11 09:30] LABS: ALBUMIN 3.8 g/dL (3.4-5.0); CALCIUM 8.8 mg/dL (8.5-10.1); CHLORIDE 109 mmol/L (98-107)
[2017-10-11 09:33] LABS: ALANINE AMINOTRANSFERASE 40 U/L (12-78); ALKALINE PHOSPHATASE 85 U/L (45-117); ANION GAP 9 mmol/L (5-15); BILIRUBIN,TOTAL 0.7 mg/dL (0.2-1.0); CREATININE 0.61 mg/dL (0.55-1.02); TOTAL PROTEIN 7.4 g/dL (6.4-8.2)
[2017-10-11] MEDS ORDERED: KETAMINE 10 MG/ML, 20ML ONE (10:47)
[2017-10-11] MEDS ORDERED: KETAMINE 100 MG/ML, 5ML IV ONE (11:00)
[2017-10-11] MEDS ORDERED: SODIUM CHLORIDE FLUSH 10ML SYR IVF PRN (11:30)
[2017-10-11] MEDS ORDERED: HYDROmorphone 2 MG/ML, 1ML ONE (12:22)
[2017-10-11] MEDS ORDERED: HYDROmorphone 2 MG/ML, 1ML IVPush ONE (12:30)
[2017-10-11] MEDS: SODIUM CHLORIDE 0.9% 1,000 ML IV SCH ×2 (13:42→22:28)
[2017-10-11] MEDS: HYDROcodone/APAP 5/325 TABLET PO PRN (13:49)
[2017-10-11] MEDS: HYDROmorphone 2 MG/ML, 1ML IVPush PRN ×2 (13:50→14:39)
[2017-10-11 14:03] VITALS: BP 148/88
[2017-10-11] MEDS ORDERED: DOCUSATE 100 MG CAPSULE PO PRN (14:30)
[2017-10-11] MEDS ORDERED: ACETAMINOPHEN 325 MG TABLET PO PRN (14:30)
[2017-10-11] MEDS ORDERED: BISACODYL 10 MG SUPP PR PRN (14:30)
[2017-10-11] MEDS ORDERED: POLYETHYLENE GLYCOL 17 GM PACKET PO PRN (14:30)
[2017-10-11 14:58] LABS: THYROID STIMULATING HORMONE 8.51 mIU/L (0.358-3.740)
[2017-10-11 15:17] LABS: HEMOGLOBIN A1C 8.4 % (4.2-6.3)
[2017-10-11] MEDS: ENOXAPARIN 40 MG/0.4 ML SQ SCH (15:45)
[2017-10-11] MEDS: INSULIN ASPART 100 UNITS/ML, PEN SQ-INSULIN SCH ×2 (16:00→21:00)
[2017-10-11] MEDS ORDERED: MAGNESIUM SULFATE PMX 2GM/50ML 50 ML IV ONE (16:30)
[2017-10-11 16:34] VITALS: BP 133/80
[2017-10-11] MEDS ORDERED: ONDANSETRON ODT 4 MG ONE (16:39)
[2017-10-11] MEDS: BACLOFEN 10 MG TABLET PO SCH ×2 (16:42→22:26)
[2017-10-11] MEDS: GABAPENTIN 300 MG CAPSULE PO SCH ×2 (16:42→22:26)
[2017-10-11] MEDS ORDERED: ONDANSETRON ODT 4 MG PO PRN (17:00)
[2017-10-11 18:37] VITALS: BP 103/62
[2017-10-12 01:39] VITALS: BP 111/71
[2017-10-12 05:22] LABS: BASOPHILS # (AUTO) 0.03 x10^3/uL (0-0.1); BASOPHILS % (AUTO) 0 % (0-1); EOSINOPHILS # (AUTO) 0.03 x10^3/uL (0-0.4); EOSINOPHILS % (AUTO) 0 % (1-7); LYMPHOCYTES # (AUTO) 1.47 x10^3/uL (1-3.4); LYMPHOCYTES % (AUTO) 12 % (22-44); MD NO; MEAN CORPUSCULAR HEMOGLOBIN 31.5 pg (27.0-34.8); MEAN CORPUSCULAR HGB CONC 33.9 g/dL (32.4-35.8); MEAN PLATELET VOLUME 10.7 fL (7.4-10.4); MONOCYTES # (AUTO) 0.52 x10^3/uL (0.2-0.8); MONOCYTES % (AUTO) 4 % (2-9); NEUTROPHILS # (AUTO) 10.33 x10^3/uL (1.8-6.8); NEUTROPHILS % (AUTO) 84 % (42-75); PLATELET COUNT 235 x10^3/uL (130-400); RED CELL DISTRIBUTION WIDTH 13.1 % (9.6-15.2)
[2017-10-12 05:42] LABS: ALBUMIN 2.9 g/dL (3.4-5.0); ANION GAP 7 mmol/L (5-15); CALCIUM 8.4 mg/dL (8.5-10.1); CHLORIDE 109 mmol/L (98-107)
[2017-10-12] MEDS: SODIUM CHLORIDE 0.9% 1,000 ML IV SCH ×3 (05:47→20:10)
[2017-10-12] MEDS: HYDROcodone/APAP 5/325 TABLET PO PRN ×3 (05:50→22:54)
[2017-10-12 05:57] LABS: ALANINE AMINOTRANSFERASE 41 U/L (12-78); ALKALINE PHOSPHATASE 75 U/L (45-117); CREATINE KINASE, TOTAL 1948 U/L (26-192); CREATININE 0.42 mg/dL (0.55-1.02); TOTAL PROTEIN 6.2 g/dL (6.4-8.2)
[2017-10-12] MEDS: INSULIN ASPART 100 UNITS/ML, PEN SQ-INSULIN SCH ×4 (07:00→20:09)
[2017-10-12] MEDS: BACLOFEN 10 MG TABLET PO SCH ×3 (08:01→20:10)
[2017-10-12] MEDS: GABAPENTIN 300 MG CAPSULE PO SCH ×3 (08:01→20:10)
[2017-10-12 08:03] VITALS: BP 101/59
[2017-10-12 10:09] LABS: MICROSCOPIC NOT IND
[2017-10-12 10:16] LABS: CULTURE INDICATED? NO
[2017-10-12] MEDS ORDERED: IBUPROFEN 200 MG TABLET PO PRN (11:30)
[2017-10-12] MEDS ORDERED: KETOROLAC 30 MG/1 ML IVPush SCH (13:00)
[2017-10-12 13:07] VITALS: BP 109/71
[2017-10-12] MEDS: ENOXAPARIN 40 MG/0.4 ML SQ SCH (14:21)
[2017-10-12] MEDS: IBUPROFEN 200 MG TABLET PO SCH (18:36)
[2017-10-12 19:21] VITALS: BP 101/66
[2017-10-13 01:47] VITALS: BP 100/63
[2017-10-13] MEDS: IBUPROFEN 200 MG TABLET PO SCH ×2 (01:50→06:48)
[2017-10-13] MEDS: SODIUM CHLORIDE 0.9% 1,000 ML IV SCH ×4 (02:40→23:00)
[2017-10-13] MEDS: INSULIN ASPART 100 UNITS/ML, PEN SQ-INSULIN SCH ×4 (06:48→21:24)
[2017-10-13 08:17] VITALS: BP 113/71
[2017-10-13] MEDS: BACLOFEN 10 MG TABLET PO SCH ×3 (08:29→21:23)
[2017-10-13] MEDS: GABAPENTIN 300 MG CAPSULE PO SCH ×3 (08:29→21:23)
[2017-10-13] MEDS: HYDROcodone/APAP 5/325 TABLET PO PRN ×3 (08:29→21:23)
[2017-10-13 13:58] VITALS: BP 106/72
[2017-10-13] MEDS: ENOXAPARIN 40 MG/0.4 ML SQ SCH (16:28)
[2017-10-13 19:16] VITALS: BP 129/81
[2017-10-14 01:35] VITALS: BP 130/84
[2017-10-14 01:56] VITALS: BP 115/69
[2017-10-14] MEDS: SODIUM CHLORIDE 0.9% 1,000 ML IV SCH ×2 (06:01→11:49)
[2017-10-14] MEDS: HYDROcodone/APAP 5/325 TABLET PO PRN ×2 (06:01→15:49)
[2017-10-14] MEDS: INSULIN ASPART 100 UNITS/ML, PEN SQ-INSULIN SCH ×2 (06:36→11:00)
[2017-10-14 09:42] VITALS: BP 115/71
[2017-10-14] MEDS: GABAPENTIN 300 MG CAPSULE PO SCH ×2 (09:44→15:49)
[2017-10-14] MEDS: BACLOFEN 10 MG TABLET PO SCH ×2 (09:44→15:49)
[2017-10-14] MEDS ORDERED: GABA600T2 PO (12:09)
[2017-10-14] MEDS ORDERED: PRED10TA PO (12:11)
[2017-10-14 15:29] VITALS: BP 103/65
[2017-10-14] MEDS ORDERED: GABAPENTIN 300 MG CAPSULE PO SCH (21:00)
[2017-10-17] MEDS ORDERED: IBUPROFEN 200 MG TABLET PO PRN (13:00)
== END 2017-10-14 17:40 | disposition home or self-care (01) | DRG 74 ==
LOC: ED 08:38 → EDIP 11:22 → 4NOR 13:18
PROVIDERS: ADMIT Family Medicine; ATTEND Internal Medicine
DX: E11.44 Type 2 diabetes mellitus with diabetic amyotrophy (principal); R65.10 Systemic inflammatory response syndrome (SIRS) of non-infectious origin without acute organ dysfunction; E11.610 Type 2 diabetes mellitus with diabetic neuropathic arthropathy; D72.829 Elevated white blood cell count, unspecified; E86.0 Dehydration; F41.9 Anxiety disorder, unspecified; F44.9 Dissociative and conversion disorder, unspecified; K59.00 Constipation, unspecified; M19.90 Unspecified osteoarthritis, unspecified site; M51.27 Other intervertebral disc displacement, lumbosacral region; E78.5 Hyperlipidemia, unspecified; Z90.49 Acquired absence of other specified parts of digestive tract; Z79.84 Long term (current) use of oral hypoglycemic drugs; Z83.3 Family history of diabetes mellitus
CPT/HCPCS: 36415; 80053; 81003; 82550; 82962; 83036; 83605; 83735; 84100; 84443; 85025; 93005; 93922; 96361; 96374; 96375; J1170; J1650; J1815; J1885; J3360; J7509; Q0162; J3475; J7030